=== PATIENT | male | born 1970 | race Caucasian/White ===

== ENCOUNTER 2019-03-17 05:06 | Emergency (ER) | payer BC, OTHER ==
[~2019-03-17] VITALS: Ht 175.3 cm; Wt 87.5 kg
[2019-03-17 05:31] LABS: BILIRUBIN,URINE NEGATIVE (NEGATIVE); CLARITY,URINE CLEAR; COLOR,URINE YELLOW; GLUCOSE, URINE (UA) NEGATIVE (NEGATIVE); KETONES,URINE NEGATIVE (NEGATIVE); LEUKOCYTE ESTERASE ,URINE NEGATIVE (NEGATIVE); NITRITE,URINE NEGATIVE (NEGATIVE); PH,URINE 5 (5-9); PROTEIN,URINE NEGATIVE (NEGATIVE); UROBILINOGEN,URINE NORMAL (NORMAL)
[2019-03-17 05:35] LABS: BASOPHILS % (AUTO) 0 % (0-10); EOSINOPHILS # (AUTO) 0.1 10^3/uL (0.0-0.3); EOSINOPHILS % (AUTO) 1 % (0-10); HEMATOCRIT 44 % (40-54); HEMOGLOBIN 14.8 G/DL (13.3-17.7); LYMPHOCYTES % (AUTO) 8 % (12-44); MEAN CORPUSCULAR HEMOGLOBIN 28 PG (25-34); MEAN CORPUSCULAR HGB CONC 34 G/DL (32-36); MEAN CORPUSCULAR VOLUME 84 FL (80-99); MEAN PLATELET VOLUME 11.1 FL (7.4-10.4); MONOCYTES % (AUTO) 8 % (0-12); NEUTROPHILS # (AUTO) 11.5 X 10^3 (1.8-7.8); NEUTROPHILS % (AUTO) 84 % (42-75); PLATELET COUNT 216 10^3/uL (130-400); RED CELL DISTRIBUTION WIDTH 12.7 % (10.0-14.5); WHITE BLOOD COUNT 13.7 10^3/uL (4.3-11.0)
[2019-03-17] MEDS ORDERED: LACTATED RINGERS 1,000 ML IV ONE (05:38)
--- NOTE | 2019-03-17 05:44 | ED Abdominal Pain ---
General Chief Complaint: Abdominal/GI Problems Stated Complaint: POSS KIDNEY STONE,LEFT SIDE Nursing Triage Note: AMBULATORY TO ED WITH C/O LEFT FLANK PAIN THAT STARTED LAST SUNDAY AND DESCRIBES BURNING AND PAINFUL, NOW AT TRIAGE PAIN IS DULL AND ACHY. DENIES BURING WITH URINATION. NO CURRENT NAUSEA. HX OF KIDNEY STONES IN PAST WITHOUT SURGICAL INTERVENTION. LAST NOC AT [facility] 1999 TOOK "GENERIC HYDROCODONE" AND IBUPROFEN WHICH DID NOT HELP PAIN. Sepsis Screen: No Definite Risk Source of Information: Patient Exam Limitations: No Limitations History of Present Illness Date Seen by Provider: Mar 17, 2019 Time Seen by Provider: 05:25 Initial Comments PT ARRIVES VIA POV FROM HOME STATES HE THINKS HE IS PASSING A KIDNEY STONE SYMPTOMS BEGAN ON SUNDAY AFTER NOON AROUND 1300, AFTER RIDING A RIDE AT [employer] PAIN CONTINUED ALL DAY--PAIN IN LEFT FLANK RADIATING TO LEFT MID AND LOWER ABDOMEN HAD NAUSEA AND VOMITED ON SUNDAY NIGHT, DUE TO PAIN PAIN SUBSIDED ON SUNDAY NIGHT, AND WAS A MILD DULL PAIN ALL DAY YESTER / SUNDAY PAIN INCREASED AROUND 1999 LAST NIGHT TOOK A HYDROCODONE WITHOUT RELIEF, LAST NIGHT--YET STATES PAIN IS ONLY A SLIGHT DULL ACHE ON THE INSIDE NOW--NOT SORE TO TOUCH--, OVER LEFT FLANK AND LEFT MID ABDOMEN NO PAIN ON URINATION, OR HEMATURIA WAS URINATING SMALL AMOUNTS OF DARK URINE ON SUNDAY, BUT HAS BEEN VOIDING NORMAL SINCE THEN HAD SUBJECTIVE FEVER LAST PM HAS HAD A KIDNEY STONE ONCE, SEVERAL YEARS AGO, PASSED IT ON HIS OWN NEVER SAW A UROLOGIST PCP: DR NAPOLES Allergies and Home Medications Allergies Coded Allergies: No Known Drug Allergies (Unverified , 03/17/19) Home Medications Hydrocodone/Ibuprofen 1 Each Tablet, 1 EACH PO Q4H PRN for PAIN-MODERATE Prescribed by: CATRACHITA PRATHER on 03/17/19608 Nitrofurantoin Monohyd/M-Cryst 100 Mg Capsule, 100 MG PO BID Prescribed by: CATRACHITA PRATHER on 03/17/19608 Ondansetron 4 Mg Tab.rapdis, 4 MG PO Q4H Prescribed by: CATRACHITA PRATHER on 03/17/19608 Tamsulosin HCl 0.4 Mg Cap, 0.4 MG PO DAILY Prescribed by: CATRACHITA PRATHER on 03/17/19608 Patient Home Medication List Home Medication List Reviewed: Yes Review of Systems Review of Systems Constitutional: see HPI, fever Respiratory: No Symptoms Reported Cardiovascular: No Symptoms Reported Gastrointestinal: See HPI, Abdominal Pain, Nausea, Vomiting Genitourinary: See HPI Musculoskeletal: see HPI, back pain Skin: no symptoms reported Psychiatric/Neurological: No Symptoms Reported Endocrine: No Symptoms Reported Hematologic/Lymphatic: No Symptoms Reported Past Lkbjspi-Yqagud-Oileeg Hx Patient Social History Alcohol Use: Denies Use Recreational Drug Use: No Smoking Status: Former Smoker (QUIT SMOKING ON DAILY BASIS A FEW YEARS AGO, NOW "OCCASIONALLY " SMOKES) Type Used: Cigarettes Recent Foreign Travel: No Contact w/Someone Who Travel: No Recent Infectious Disease Expo: No Recent Hopitalizations: No Seasonal Allergies Seasonal Allergies: No Past Medical History Surgeries: Yes (WISDOM TEETH) Respiratory: No Cardiac: Yes High Cholesterol, Hypertension Neurological: No Reproductive Disorders: No Genitourinary: Yes Kidney Stones Gastrointestinal: No Musculoskeletal: No Endocrine: No HEENT: No Cancer: No Psychosocial: No Blood Disorders: No Physical Exam Vital Signs Vital Signs - First Documented 03/17/19 05:21 Temp 97.9 Pulse 72 Resp 18 B/P (MAP) 166/111 (129) Capillary Refill : Less Than 3 Seconds Height/Weight/BMI Height: 5'9.00" Weight: 193lbs. oz. 87.947313bu; 24.39 BMI Method:Stated General Appearance: WD/WN, no apparent distress, other (TALKS NON-STOP AT LENGTH) Respiratory: normal breath sounds, no respiratory distress, no accessory muscle use Cardiovascular: regular rate, rhythm, no murmur Gastrointestinal: normal bowel sounds, non tender, soft, no organomegaly Back: normal inspection, no CVA tenderness Neurologic/Psychiatric: interventional neuroradiologist II-XII nml as tested, no motor/sensory deficits, alert, normal mood/affect, oriented x 3 Skin: normal color, warm/dry; No rash Progress/Results/Core Measures Results/Orders Lab Results Laboratory Tests Test 03/17/19 05:20 03/17/19 05:25 Range/Units Urine Color YELLOW Urine Clarity CLEAR Urine pH 5 5-9 Urine Specific [place] 1.020 1.016-1.022 Urine Protein NEGATIVE NEGATIVE Urine Glucose (UA) NEGATIVE NEGATIVE Urine Ketones NEGATIVE NEGATIVE Urine Nitrite NEGATIVE NEGATIVE Urine Bilirubin NEGATIVE NEGATIVE Urine Urobilinogen NORMAL NORMAL MG/DL Urine Leukocyte Esterase NEGATIVE NEGATIVE Urine RBC (Auto) NEGATIVE NEGATIVE Urine RBC NONE /HPF Urine WBC NONE /HPF Urine Squamous Epithelial Cells RARE /HPF Urine Crystals NONE /LPF Urine Bacteria TRACE /HPF Urine Casts NONE /LPF Urine Mucus NEGATIVE /LPF Urine Culture Indicated NO White Blood Count 13.7 H 4.3-11.0 10^3/uL Red Blood Count 5.24 4.35-5.85 10^6/uL Hemoglobin 14.8 13.3-17.7 G/DL Hematocrit 44 40-54 % Mean Corpuscular Volume 84 80-99 FL Mean Corpuscular Hemoglobin 28 25-34 PG Mean Corpuscular Hemoglobin Concent 34 32-36 G/DL Red Cell Distribution Width 12.7 10.0-14.5 % Platelet Count 216 130-400 10^3/uL Mean Platelet Volume 11.1 H 7.4-10.4 FL Neutrophils (%) (Auto) 84 H 42-75 % Lymphocytes (%) (Auto) 8 L 12-44 % Monocytes (%) (Auto) 8 0-12 % Eosinophils (%) (Auto) 1 0-10 % Basophils (%) (Auto) 0 0-10 % Neutrophils # (Auto) 11.5 H 1.8-7.8 X 10^3 Lymphocytes # (Auto) 1.0 1.0-4.0 X 10^3 Monocytes # (Auto) 1.0 0.0-1.0 X 10^3 Eosinophils # (Auto) 0.1 0.0-0.3 10^3/uL Basophils # (Auto) 0.0 0.0-0.1 10^3/uL Sodium Level 137 135-145 MMOL/L Potassium Level 4.1 3.6-5.0 MMOL/L Chloride Level 103 98-107 MMOL/L Carbon Dioxide Level 24 21-32 MMOL/L Anion Gap 10 5-14 MMOL/L Blood Urea Nitrogen 19 H 7-18 MG/DL Creatinine 1.99 H 0.60-1.30 MG/DL Estimat Glomerular Filtration Rate 36 BUN/Creatinine Ratio 10 Glucose Level 111 H 70-105 MG/DL Calcium Level 9.2 8.5-10.1 MG/DL Corrected Calcium 9.0 8.5-10.1 MG/DL Total Bilirubin 1.1 H 0.1-1.0 MG/DL Aspartate Amino Transf (AST/SGOT) 16 5-34 U/L Alanine Aminotransferase (ALT/SGPT) 28 0-55 U/L Alkaline Phosphatase 52 40-136 U/L Total Protein 7.2 6.4-8.2 GM/DL Albumin 4.3 3.2-4.5 GM/DL Amylase Level 32 25-125 U/L Lipase 9 8-78 U/L My Orders Orders - CATRACHITA PRATHER DO Ct Abd/Pelvis Wo(Kidney Stone) (03/17/19 05:26) Amylase (03/17/19 05:26) Cbc With Automated Diff (03/17/19 05:26) Comprehensive Metabolic Panel (03/17/19 05:26) Lipase (03/17/19 05:26) Urinalysis (03/17/19 05:26) Acute Abd Series (03/17/19 05:26) Ed Iv/Invasive Line Start (03/17/19 05:26) Ketorolac Injection (Toradol Injection) (03/17/19 05:45) Ed Iv/Invasive Line Start (03/17/19 05:38) Lactated Ringers (Lr 1000 Ml Iv Solution (03/17/19 05:38) Tamsulosin Capsule (Flomax Capsule) (03/17/19 06:15) Medications Given in ED Current Medications Medications Dose Ordered Sig/Silver Route Start Time Stop Time Status Last Admin Dose Admin Ketorolac Tromethamine 30 mg ONCE ONCE IVP 03/17/19 05:45 03/17/19 05:46 DC 03/17/19 06:00 30 MG Lactated Ringer's 1,000 ml @ 0 mls/hr Q0M ONCE IV 03/17/19 05:38 03/17/19 05:39 DC 03/17/19 06:00 999 MLS/HR Vital Signs/I&O 03/17/19 05:21 Temp 97.9 Pulse 72 Resp 18 B/P (MAP) 166/111 (129) Blood Pressure Mean: 129 Progress Progress Note : Progress Note NO SIGNIFICANT PAIN DURING ER STAY--ONLY A MILD DULL ACHE ON ARRIVAL, WHICH IS COMPLETELY RESOLVED WITH TORADOL NO OTHER SYMPTOMS DURING ER STAY Diagnostic Imaging Comments ACUTE ABDOMEN XRAYS--NO ACUTE PROCESS, CALCIFICATIONS IN PELVIS BILATERALLY, PENDING RADIOLOGIST REVIEW CT ABDOMEN/PELVIS--3 MM STONE LEFT UVJ WITH MILD LEFT HYDRONEPHROSIS, MILD LEFT PERINEPHRIC STRANDING. FATTY LIVER. PER [facility] VIA FAX AT 0602 Reviewed: Reviewed by Me Departure Impression Primary Impression: Calculus of distal left ureter Disposition: 01 HOME, SELF-CARE Condition: Stable Departure-Patient Inst. Referrals: MARIO ALBERTO NAPOLES MD (PCP/Family) Primary Care Physician ROBERT KINNEY MD Patient Instructions: How to Strain Your Urine, Kidney Stones (DC) Add. Discharge Instructions: LOTS OF FLUIDS STRAIN ALL URINE--RETURN ANY STONES TO DR. KINNEY'S OFFICE RETURN TO ER IF WORSE All discharge instructions reviewed with patient and/or family. Voiced understanding. Scripts Nitrofurantoin Monohyd/M-Cryst (Macrobid 100 mg Capsule) 100 Mg Capsule 100 MG PO BID, #20 CAP Prov: CATRACHITA PRATHER DO 03/17/19 Ondansetron (Ondansetron Odt) 4 Mg Tab.rapdis 4 MG PO Q4H for Nausea/Vomiting, #10 TAB Prov: CATRACHITA PRATHER DO 03/17/19 Hydrocodone/Ibuprofen (Hydrocodone-Ibuprofen 7.5-200) 1 Each Tablet 1 EACH PO Q4H PRN for PAIN-MODERATE for 3 Days, TAB Prov: CATRACHITA PRATHER DO 03/17/19 Tamsulosin HCl (Flomax) 0.4 Mg Cap 0.4 MG PO DAILY, #10 CAP Prov: CATRACHITA PRATHER DO 03/17/19 CATRACHITA PRATHER DO Mar 17, 2019 05:44
[2019-03-17] MEDS ORDERED: KETOROLAC 30 MG/ML VIAL IVP ONE (05:45)
[2019-03-17 05:47] LABS: BACTERIA,URINE TRACE /HPF; SQUAMOUS EPITHELIAL CELL,UR RARE /HPF
[2019-03-17 05:53] LABS: ALBUMIN 4.3 GM/DL (3.2-4.5); BILIRUBIN,TOTAL 1.1 MG/DL (0.1-1.0); CALCIUM 9.2 MG/DL (8.5-10.1); CREATININE SERUM 1.99 MG/DL (0.60-1.30); POTASSIUM 4.1 MMOL/L (3.6-5.0); TOTAL PROTEIN 7.2 GM/DL (6.4-8.2)
[2019-03-17] MEDS ORDERED: TAMS0.4C98 PO (06:09)
[2019-03-17] MEDS ORDERED: NITR-65 PO (06:09)
[2019-03-17] MEDS ORDERED: ONDA4TAB11 PO (06:09)
[2019-03-17] MEDS ORDERED: HYDR-87 PO (06:09)
[2019-03-17] MEDS ORDERED: TAMSULOSIN 0.4 MG (FLOMAX) CAP PO ONE (06:11)
--- NOTE | 2019-03-17 06:13 | Diagnostic Imaging Report ---
INDICATION: Flank and abdominal pain. COMPARISON: None. FINDINGS: Acute abdominal series demonstrates normal chest. The bowel gas pattern is normal. There is some slight constipation without obstruction or ileus. There is no free air. Osseous structures are normal. IMPRESSION: Slight constipation. Dictated by: Dictated on workstation # [id number]
[2019-03-17] MEDS ORDERED: TAMSULOSIN 0.4 MG (FLOMAX) CAP PO SCH (06:15)
--- NOTE | 2019-03-17 06:41 | Diagnostic Imaging Report ---
PROCEDURE: CT urinary tract, rule out kidney stone. TECHNIQUE: Multiple contiguous axial images were obtained through the abdomen and pelvis without the use of intravenous contrast. Auto Exposure Controls were utilized during the CT exam to meet ALARA standards for radiation dose reduction. INDICATION: Left flank pain. COMPARISON: 02/19/2014 FINDINGS: There is mild left-sided hydronephrosis secondary to an obstructive 3 mm stone just above the left UVJ. Additional single nonobstructive stone is seen in the mid aspect of the left kidney. Right kidney and ureter are normal. Lung bases are clear. The gallbladder and additional solid organs are intact. The course and caliber of the large and small bowel normal. There is no free air, free fluid or inflammation. Osseous structures are age-appropriate. IMPRESSION: Mild left-sided hydronephrosis secondary to an obstructive 3 mm stone just above the left UVJ. Agree with preliminary report. Dictated by: Dictated on workstation # [id number]
[2019-03-17 06:44] VITALS: BP 139/102
== END 2019-03-17 06:45 | disposition home or self-care (01) ==
LOC: EDUNIT# 05:06 → ER 05:10
DX: N13.2 Hydronephrosis with renal and ureteral calculous obstruction (principal); E78.00 Pure hypercholesterolemia, unspecified; I10 Essential (primary) hypertension; Z87.442 Personal history of urinary calculi; Z87.891 Personal history of nicotine dependence
CPT/HCPCS: 36415; 74022; 74176; 80053; 81000; 82150; 83690; 85025; 96361; 96374

== ENCOUNTER → 2019-03-19 | Outpatient (CLI) | payer BC ==
[~2019-03-19] MED LIST: ATEN50TA PO; ATOR10TA66 PO; HYDR-87 PO; NITR-65 PO; ONDA4TAB11 PO; PHEN-640 PO; TAMS0.4C98 PO
--- NOTE | 2019-03-19 16:06 | Diagnostic Imaging Report ---
Supine abdomen at 2:43. Indication: Left urolithiasis. The CT abdomen/pelvis exam of 03/17/2019 noted partial obstruction of the left collecting system due to a 3 mm calculus at the ureterovesicular junction. On the acute abdomen series performed in conjunction with the CT, there were 2 similar sized calcifications overlying the base of the bladder on the left. On this exam, the more cephalad of the 2 calcifications is not well-visualized and may have been the obstructive calculus. The calculus may have subsequently passed into the bladder. The other calcification is unchanged in position. This calcification was also present on the prior lumbar spine exam of 07/06/2016, consequently is most likely due to a phlebolith. The nonobstructive calculi involving the left kidney seen on CT exam are partially visualized on this exam. There is no other pathological calcification evident. There is no acute abnormality of the abdomen. Impression: 1. The obstructive calculus within the distal left ureter seen previously is not well-visualized and may have passed into the bladder. Clinical followup is recommended. 2. There is no acute abnormality of the abdomen noted. Dictated by: Dictated on workstation # [id number]
== END ==
LOC: RAD 14:33
PROVIDERS: ATTEND Urology
DX: N20.1 Calculus of ureter (principal)
CPT/HCPCS: 74018

== ENCOUNTER 2019-03-20 05:31 | Outpatient (CLI) | payer BC ==
[~2019-03-20] VITALS: Ht 175.3 cm; Wt 87.5 kg
[~2019-03-20 05:31] MED LIST changes: -ATEN50TA PO; -ATOR10TA66 PO; -PHEN-640 PO
[2019-03-20] MEDS ORDERED: ATEN50TA PO (12:15)
[2019-03-20] MEDS ORDERED: ATOR10TA66 PO (12:15)
[2019-03-21] MEDS ORDERED: PHEN-640 PO (13:53)
== END 2019-03-20 12:28 ==
LOC: PREOP 05:31
PROVIDERS: ATTEND Urology
DX: Z01.818 Encounter for other preprocedural examination (principal)

== ENCOUNTER 2019-03-21 10:14 | Day surgery (SDC) | payer BC ==
[2019-03-21] VITALS (11 sets, daily range): BP systolic 146–164; BP diastolic 88–102
[~2019-03-21] VITALS: Ht 175.3 cm; Wt 87.5 kg
--- NOTE | 2019-03-21 09:14 | Progress Note-Pre Operative ---
Pre-Operative Progress Note H&P Reviewed The H&P was reviewed, patient examined and no changes noted. Date Seen by Provider: Mar 21, 2019 Time Seen by Provider: 11:45 Date H&P Reviewed: Mar 21, 2019 Time H&P Reviewed: 11:45 Pre-Operative Diagnosis: LT DISTAL URETERAL STONE ROBERT KINNEY MD Mar 21, 2019 09:14
[~2019-03-21 10:14] MED LIST changes: +ATEN50TA PO; +ATOR10TA66 PO
--- OUTSIDE RECORDS SUMMARY | 2019-03-21 10:17 | XMS REPORT | Continuity of Care Document ---
Author Organization Unknown Address Unknown Allergies Active Description Code Type Severity Reaction Onset Reported/Identified Relationship to Patient Clinical Status Yes No Known Drug Allergies [id number] Drug Allergy Unknown N/A 03/17/2019 Medications There is no data. 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 Ot 789.03 ABDOMINAL PAIN, RIGHT LOWER QUADRANT 08/14/2016 COLTHARP DOLIZY Ot M54.5 LOW BACK PAIN 08/14/2016 COLERIKAARP DOLIZY Ot S33.5XXD SPRAIN OF LIGAMENTS OF LUMBAR SPINE, SUB 08/14/2016 COLTHARP DO, LIZY Owen Ot X39.8XXD OTHER EXPOSURE TO FORCES [employer], SUBS 08/14/2016 COLTHARP DO, LIZY Owen Ot Y92.69 OT INDUSTRIAL AND CONSTRUCTION AREA 08/14/2016 COLTHARP DOLIZY Ot Y99.0 CIVILIAN ACTIVITY DONE FOR INCOME OR PAY 08/21/2016 COLTHARP DO, LIZY Owen Ot M54.5 LOW BACK PAIN 08/21/2016 COLTHARP DO, LIZY Owen Ot S33.5XXD SPRAIN OF LIGAMENTS OF LUMBAR SPINE, SUB 08/21/2016 COLTHARP DOLIZY Ot X39.8XXD OTHER EXPOSURE TO FORCES [employer] NAT[employer], SUBS 08/21/2016 LIZY FELICIANO DO Ot Y92.69 OT INDUSTRIAL AND CONSTRUCTION AREA 08/21/2016 LIZY FELICIANO DO Ot Y99.0 CIVILIAN ACTIVITY DONE FOR INCOME OR PAY 08/24/2016 LIZY FELICIANO DO Ot M54.5 LOW BACK PAIN 08/24/2016 LIZY FELICIANO DO Ot S33.5XXD SPRAIN OF LIGAMENTS OF LUMBAR SPINE, SUB 08/24/2016 LIZY FELICIANO DO Ot X39.8XXD OTHER EXPOSURE TO FORCES [employer] NAT[employer], SUBS 08/24/2016 LIZY FELICIANO DO Ot Y92.69 OT INDUSTRIAL AND CONSTRUCTION AREA 08/24/2016 LIZY FELICIANO DO Ot Y99.0 CIVILIAN ACTIVITY DONE FOR INCOME OR PAY Procedures There is no data. Results Test Result Range T3 Uptake - 06/29/17 12:00 T3 Uptake 26 % 24-39 Complete urinalysis with reflex to culture - 03/17/19 05:20 Urine color determination YELLOW NRG Urine clarity determination CLEAR NRG Urine pH measurement by test strip 5 5-9 Specific gravity of urine by test strip 1.020 1.016-1.022 Urine protein assay by test strip, semi-quantitative NEGATIVE NEGATIVE Urine glucose detection by automated test strip NEGATIVE NEGATIVE Erythrocytes detection in urine sediment by light microscopy NEGATIVE NEGATIVE Urine ketones detection by automated test strip NEGATIVE NEGATIVE Urine nitrite detection by test strip NEGATIVE NEGATIVE Urine total bilirubin detection by test strip NEGATIVE NEGATIVE Urine urobilinogen measurement by automated test strip (mass/volume) NORMAL NORMAL Urine leukocyte esterase detection by dipstick NEGATIVE NEGATIVE Automated urine sediment erythrocyte count by microscopy (number/high power field) NONE NRG Automated urine sediment leukocyte count by microscopy (number/high power field) NONE NRG Bacteria detection in urine sediment by light microscopy TRACE NRG Squamous epithelial cells detection in urine sediment by light microscopy RARE NRG Crystals detection in urine sediment by light microscopy NONE NRG Casts detection in urine sediment by light microscopy NONE NRG Mucus detection in urine sediment by light microscopy NEGATIVE NRG Complete urinalysis with reflex to culture NO NRG Complete blood count (CBC) with automated white blood cell (WBC) differential - 03/17/19 05:25 Blood leukocytes automated count (number/volume) 13.7 10*3/uL 4.3-11.0 Blood erythrocytes automated count (number/volume) 5.24 10*6/uL 4.35-5.85 Venous blood hemoglobin measurement (mass/volume) 14.8 g/dL 13.3-17.7 Blood hematocrit (volume fraction) 44 % 40-54 Automated erythrocyte mean corpuscular volume 84 [foz_us] 80-99 Automated erythrocyte mean corpuscular hemoglobin (mass per erythrocyte) 28 pg 25-34 Automated erythrocyte mean corpuscular hemoglobin concentration measurement (mass/volume) 34 g/dL 32-36 Automated erythrocyte distribution width ratio 12.7 % 10.0- 14.5 Automated blood platelet count (count/volume) 216 10*3/uL 130-400 Automated blood platelet mean volume measurement 11.1 [foz_us] 7.4-10.4 Automated blood neutrophils/100 leukocytes 84 % 42-75 Automated blood lymphocytes/100 leukocytes 8 % 12-44 Blood monocytes/100 leukocytes 8 % 0-12 Automated blood eosinophils/100 leukocytes 1 % 0-10 Automated blood basophils/100 leukocytes 0 % 0-10 Blood neutrophils automated count (number/volume) 11.5 10*3 1.8-7.8 Blood lymphocytes automated count (number/volume) 1.0 10*3 1.0-4.0 Blood monocytes automated count (number/volume) 1.0 10*3 0.0- 1.0 Automated eosinophil count 0.1 10*3/uL 0.0-0.3 Automated blood basophil count (count/volume) 0.0 10*3/uL 0.0-0.1 Comprehensive metabolic panel - 03/17/19 05:25 Serum or plasma sodium measurement (moles/volume) 137 mmol/L 135-145 Serum or plasma potassium measurement (moles/volume) 4.1 mmol/L 3.6-5.0 Serum or plasma chloride measurement (moles/volume) 103 mmol/L 98-107 Carbon dioxide 24 mmol/L 21-32 Serum or plasma anion gap determination (moles/volume) 10 mmol/L 5-14 Serum or plasma urea nitrogen measurement (mass/volume) 19 mg/dL 7-18 Serum or plasma creatinine measurement (mass/volume) 1.99 mg/dL 0.60-1.30 Serum or plasma urea nitrogen/creatinine mass ratio 10 NRG Serum or plasma creatinine measurement with calculation of estimated glomerular filtration rate 36 NRG Serum or plasma glucose measurement (mass/volume) 111 mg/dL 70-105 Serum or plasma calcium measurement (mass/volume) 9.2 mg/dL 8.5-10.1 Serum or plasma total bilirubin measurement (mass/volume) 1.1 mg/dL 0.1-1.0 Serum or plasma alkaline phosphatase measurement (enzymatic activity/volume) 52 U/L 40-136 Serum or plasma aspartate aminotransferase measurement (enzymatic activity/volume) 16 U/L 5-34 Serum or plasma alanine aminotransferase measurement (enzymatic activity/volume) 28 U/L 0-55 Serum or plasma protein measurement (mass/volume) 7.2 g/dL 6.4-8.2 Serum or plasma albumin measurement (mass/volume) 4.3 g/dL 3.2-4.5 CALCIUM CORRECTED 9.0 mg/dL 8.5-10.1 Serum or plasma amylase measurement (enzymatic activity/volume) - 03/17/19 05:25 Serum or plasma amylase measurement (enzymatic activity/volume) 32 U/L 25-125 Lipase - 03/17/19 05:25 Lipase 9 U/L 8-78 Encounters ACCT No. Visit Date/Time Discharge Status Pt. Type Provider Facility Loc./Unit Complaint [id number] 03/17/2019 05:10:00 03/17/2019 06:45:00 DIS Emergency CATRACHITA PRATHER DO [facility] ER POSS KIDNEY STONE,LEFT SIDE [id number] 08/24/2016 14:30:00 08/24/2016 15:55:00 DIS Outpatient LIZY FELICIANO DO [facility] REHAB LUMBAR PAIN/SPRAIN [id number] 07/21/2016 15:28:00 07/21/2016 23:59:59 CLS Outpatient LIZY FELICIANO DO [facility] RAD ACUTE LUMBAR SPRAIN/PAIN [id number] 07/06/2016 09:12:00 07/06/2016 23:59:59 CLS Outpatient LIZY FELICIANO DO [facility] OCC BACK PAIN AFTER LIFTING 100# [id number] 06/22/2014 18:28:00 06/22/2014 19:57:00 DIS Emergency BRITNEY BYNUM APRN [facility] ER RIGHT SIDE ABD PAIN [id number] 03/19/2019 14:33:00 ACT Outpatient NIRMAL [place], ROBERT [facility] RAD KUB X-RAY [id number] 07/02/2017 13:06:00 Document Registration
--- NOTE | 2019-03-21 10:45 | Diagnostic Imaging Report ---
CLINICAL INDICATION: Patient with left ureteral stone. EXAM: KUB x-ray. COMPARISON: X-ray of the abdomen dated 03/19/2012. CT scan of the abdomen and pelvis without contrast dated 03/17/2019. FINDINGS: Stable appearance to calcifications in the pelvis. There are multiple phleboliths in the pelvis seen bilaterally. This limits evaluation for distal ureteral stone. There is a 2 mm calcification overlying the expected region of the mid to upper left kidney which may represent a left renal stone. There is no intestinal obstruction. There is no intra-abdominal free air. There are small degenerative spurs involving the spine. IMPRESSION: 1: There are stable multiple calcifications in the pelvis which may represent phleboliths. These calcifications limit evaluation for stones in the distal ureter. If there is continued concern for distal ureteral stone, then CT scan would better evaluate. 2: Nonobstructive left nephrolithiasis. Dictated by: Dictated on workstation # [id number]
[2019-03-21] MEDS ORDERED: fentaNYL INJECTION 100 MCG/2 ML AMP IV ONE (11:00)
[2019-03-21] MEDS ORDERED: cefTRIAXone FOR IV USE 1,000 MG in WATER (STERILE) FOR INJECTION 10 ML IV ONE (11:00)
[2019-03-21] MEDS: LACTATED RINGERS 1,000 ML IV PRN ×2 (11:05→12:35)
[2019-03-21] MEDS ORDERED: CATHETER FLUSH 10 ML SYR IV PRN (11:15)
[2019-03-21] MEDS ORDERED: MIDAZOLAM 2 MG/2 ML (VERSED) VIAL ONE (11:39)
[2019-03-21] MEDS ORDERED: proPOfol 200 MG/20 ML (DIPRIVAN) VIAL IV ONE (11:39)
[2019-03-21] MEDS ORDERED: LIDOCAINE PF 2% 5 ML (XYLOCAINE) VIAL ONE (11:39)
[2019-03-21] MEDS ORDERED: fentaNYL INJECTION 100 MCG/2 ML AMP ONE (11:39)
[2019-03-21] MEDS ORDERED: DEXAMETHASONE 10 MG/ML (DECADRON) 1 ML VIAL ONE (11:47)
[2019-03-21] MEDS ORDERED: ONDANSETRON 4 MG/2 ML (SDV) Z0FRAN ONE (11:47)
--- NOTE | 2019-03-21 11:47 | Progress Note-Post Operative ---
Post-Operative Progess Note Surgeon (s)/Inspector Of Weights And Measures (s) Surgeon ROBERT KINNEY MD Inspector Of Weights And Measures: NONE Pre-Operative Diagnosis LT DISTAL URETERAL STONE Post-Operative Diagnosis SAME Procedure & Operative Findings Date of Procedure 03/21/19 Procedure Performed/Findings LT URETEROSCOPY WITH STONE LITHOTRIPSY AND LT RETROGRADE UROGRAM Anesthesia Type GENERAL Estimated Blood Loss Estimated blood loss (mL): NONE Specimens/Packing Specimens Removed STONE FRAGMENT Packing: NONE ROBERT KINNEY MD Mar 21, 2019 11:47
[2019-03-21] MEDS ORDERED: ROCURONIUM 10 MG/ML 5 ML SYRINGE IV ONE (11:58)
[2019-03-21] MEDS ORDERED: NEOSTIGMINE 1 MG/ML 5 ML SYRINGE ONE (12:21)
[2019-03-21] MEDS ORDERED: GLYCOPYRROLATE 0.2 MG/ML (ROBINUL) 2 ML VIAL ONE (12:21)
[2019-03-21] MEDS ORDERED: FUROSEMIDE 40 MG/4 ML INJ (LASIX) ONE (12:23)
[2019-03-21] MEDS ORDERED: KETOROLAC 30 MG/ML VIAL ONE (12:23)
[2019-03-21] MEDS ORDERED: SEVOFLURANE (ULTANE) 15 ML INHAL SOLN ONE (12:29)
--- NOTE | 2019-03-21 12:46 | Discharge Inst-Urology ---
Discharge Inst-Urology Discharge Medications New, Converted, or Re-newed RX: RX on Chart Patient Instructions/Follow Up Plan Please make appointment to been seen in office in 3 weeks. Stone risk profile to do as OP, lab to provide kit and instructions Increase oral fluids for 48 hours and then as needed. Diet and Activity as tolerated. If questions or concerns contact your physician Or seek help at emergency department. ROBERT KINNEY MD Mar 21, 2019 12:46
[2019-03-21] MEDS ORDERED: morphine INJ 10 MG/ML 1ML (SYR OR VIAL) IVP ONE (13:00)
[2019-03-21] MEDS ORDERED: ONDANSETRON 4 MG/2 ML (SDV) Z0FRAN IVP PRN (13:00)
[2019-03-21] MEDS ORDERED: HYDROmorphone 2 MG/ML VIAL (DILAUDID) IV ONE (13:00)
[2019-03-21] MEDS ORDERED: PHEN-640 PO (13:53)
--- NOTE | 2019-03-21 14:38 | Anesthesia-General Post-Op ---
General Patient Condition Mental Status/LOC: Same as Preop Cardiovascular: Satisfactory Nausea/Vomiting: Absent Respiratory: Satisfactory Pain: Controlled Complications: Absent Post Op Complications Complications None Follow Up Care/Instructions Patient Instructions None needed. Anesthesia/Patient Condition Patient Condition Patient is doing well, no complaints, stable vital signs, no apparent adverse anesthesia problems. MANDY CARR DO Mar 21, 2019 14:38
--- NOTE | 2019-03-21 19:17 | OPERATIVE REPORT ---
DATE OF SERVICE: 03/21/2019 PREOPERATIVE DIAGNOSIS: Left distal ureteral stone. POSTOPERATIVE DIAGNOSIS: Left distal ureteral stone. OPERATION PERFORMED: Left ureteroscopy with stone lithotripsy recovery of stone fragment and left retrograde ureterogram. SURGEON: Akira Kinney MD ANESTHESIA: General. COMPLICATIONS: None. DESCRIPTION OF PROCEDURE: Under satisfactory general anesthesia with the patient in lithotomy position, genitalia were prepped and draped in the usual sterile fashion. A 23-Lao cystoscope was introduced in the bladder. The anterior urethra was normal. The prostate was small, but there was an elevated median bar that was bypassed easily. The bladder inspection was normal except that the left ureteral orifice intramural portion was swollen and edematous with no efflux. I went ahead using the foroblique lens dilated the left ureteral orifice intramural portion to accommodate a 6.9 Lao semirigid ureteroscope, visualized the stone that was disimpacted during dilatation and fragmented. The fragments fell into the bladder that was later retrieved with the stone grasping forceps and given to the patient to his wish. I went ahead with the ureteroscope and went up to the middle of the proximal ureter up and down to confirm no more stones or fragments. I did a retrograde ureterogram, which showed no filling defect and complete emptying of the system on withdrawing the scope. There was no reason to put a stent. I removed the ureteroscope, reinserted the cystoscope and retrieved that fragment as above with the grasping forceps, emptied the bladder and removed the cystoscope. The patient tolerated the procedure and anesthesia well and was sent to recovery room in stable condition. PLAN: We will complete the workup for stone prevention with a stone risk profile and we will see him back in 3 weeks and manage the future for prevention of stone formation. This was preoperatively explained to the patient and to his as well postoperatively. Job ID: [id number] DocumentID: [id number] Dictated Date: 03/21/2019 12:49:06 Advertising Inserter Date: 03/21/2019 19:17:43 Dictated By: AKIRA KINNEY MD
== END 2019-03-21 14:35 | disposition home or self-care (01) ==
LOC: SDC 10:14
PROVIDERS: ATTEND Urology
DX: N20.1 Calculus of ureter (principal); I10 Essential (primary) hypertension; E78.00 Pure hypercholesterolemia, unspecified; Z79.899 Other long term (current) drug therapy
CPT/HCPCS: 74018; 87081

== ENCOUNTER 2019-03-25 16:38 | Outpatient (RCR) | payer BC ==
[~2019-03-25 16:38] MED LIST changes: +PHEN-640 PO
== END 2019-06-23 | disposition home or self-care (01) ==
LOC: LAB 16:38
PROVIDERS: ATTEND Urology
DX: N20.9 Urinary calculus, unspecified (principal)
CPT/HCPCS: 36415; 82140; 82340; 82507; 82570; 83735; 83945; 83986; 84105; 84133; 84300; 84392; 84560

== ENCOUNTER → 2021-05-20 | Outpatient (CLI) | payer BC ==
[~2021-05-20] MED LIST changes: -TAMS0.4C98 PO; +TMSL.4C PO
--- NOTE | 2021-05-20 17:01 | Diagnostic Imaging Report ---
INDICATION: Low back pain. TIME OF EXAM: 12:40 p.m. AP, lateral and both oblique views of the lumbar spine were obtained. Curvature and alignment of the lumbar spine is normal. Vertebral body heights and disc spaces are well-maintained. No fracture or subluxation is seen. No definite spondylolysis or spondylolisthesis is identified. IMPRESSION: No acute bony abnormality is detected. Dictated by: Dictated on workstation # [id number]
== END ==
LOC: RAD 12:12
PROVIDERS: ATTEND Physician Assistant
DX: M54.5 Low back pain (principal)
CPT/HCPCS: 72110

== ENCOUNTER 2023-01-19 12:31 | Outpatient (CLI) | payer BC ==
[~2023-01-19 12:31] MED LIST changes: +HYDR-4085 PO; -HYDR-87 PO
== END 2023-01-19 12:55 ==
LOC: SLEEP 12:31
PROVIDERS: ATTEND Family Medicine
DX: G47.33 Obstructive sleep apnea (adult) (pediatric) (principal)
CPT/HCPCS: G0399

== ENCOUNTER 2023-07-18 05:56 | Outpatient (CLI) | payer BC ==
[~2023-07-18] VITALS: Ht 175.3 cm; Wt 88.1 kg
[2023-07-18] MEDS ORDERED: HYDR12.56 PO (10:54)
== END 2023-07-18 11:00 | disposition home or self-care (01) ==
LOC: PREOP 05:56
PROVIDERS: ATTEND Surgery
DX: Z01.818 Encounter for other preprocedural examination (principal)

== ENCOUNTER 2023-07-27 09:06 | Day surgery (SDC) | payer BC ==
[~2023-07-27] VITALS: Ht 175.2 cm; Wt 88.1 kg
[~2023-07-27 09:06] MED LIST changes: +HYDR12.56 PO
[2023-07-27] MEDS ORDERED: LACTATED RINGERS 1,000 ML 1,000 ML IV STA (09:10)
[2023-07-27] MEDS ORDERED: LIDOCAINE JELLY 2% 6 ML SYRINGE MM PRN (09:15)
[2023-07-27 09:37] VITALS: BP 144/93
[2023-07-27] MEDS ORDERED: MIDAZOLAM INJ 2 MG/2 ML VIAL ONE (10:40)
[2023-07-27] MEDS ORDERED: LIDOCAINE JELLY 2% 6 ML SYRINGE ONE ×2 (10:42→10:43)
[2023-07-27] MEDS ORDERED: ONDANSETRON 4 MG ORAL DISSOLVE TABLET PO PRN (10:45)
[2023-07-27] MEDS ORDERED: ONDANSETRON INJECTION 4 MG/2 ML (SDV) IVP PRN (10:45)
--- NOTE | 2023-07-27 10:45 | Progress Note-Pre Operative ---
Pre-Operative Progress Note Date of Available H&P: Jul 27, 2023 Date H&P Reviewed: Jul 27, 2023 Time H&P Reviewed: 10:30 History & Physical: No changes noted Pre-Operative Diagnosis: screening o SHANICE VEGAS MD Jul 27, 2023 10:45
--- NOTE | 2023-07-27 10:46 | Discharge Inst-Surgical ---
D/C Lap Instructions-ASCENCION Follow Up Activity as tolerated High Fiber Diet 25g or more per day Avoid Alcohol, Caffeine, Spicy [place] and Acid foods. Drink 64 fluid oz or more of fluids per day. Symptoms to Report: Fever over 101 degree F, Nausea/Vomiting If any problems/questions: Contact your physician or go to Emergency Room SHANICE VEGAS MD Jul 27, 2023 10:46
[2023-07-27 11:15] VITALS: BP 102/61
[2023-07-27 11:20] VITALS: BP 108/65
[2023-07-27 11:25] VITALS: BP 132/77
[2023-07-27 11:46] VITALS: BP 132/77
--- NOTE | 2023-07-27 12:31 | Progress Note-Post Operative ---
Post-Operative Progess Note Surgeon (s)/Chain Hooker (s) Surgeon SHANICE VEGAS MD Chain Hooker: none Pre-Operative Diagnosis screening colo Post-Operative Diagnosis mild chronic stage 2 ext and int hemorrhoids. Procedure & Operative Findings Date of Procedure 07/27/23 Procedure Performed/Findings colonoscopy Anesthesia Type mac Estimated Blood Loss Estimated blood loss (mL): minimal Specimens/Packing Specimens Removed none SHANICE VEGAS MD Jul 27, 2023 12:31
--- NOTE | 2023-07-27 19:22 | OPERATIVE REPORT ---
DATE OF SERVICE: 07/27/2023 ATTENDING PRIMARY CARE PHYSICIAN: Dr. Reid Truong. PREOPERATIVE DIAGNOSIS: Screening colonoscopy. POSTOPERATIVE DIAGNOSES: Mild chronic stage II external and internal hemorrhoids. PROCEDURE: Colonoscopy. SURGEON: Shanice Vegas MD ANESTHESIA: Monitored anesthesia care. ESTIMATED BLOOD LOSS: Minimal. FINDINGS: Mild chronic stage II external and internal hemorrhoids. DISPOSITION: The patient tolerated the procedure well. INDICATIONS: The patient is a 52-year-old male in need of a screening colonoscopy. He has not had a colonoscopy up to this point in his life. He states that he is otherwise doing well, does not report any major issues with diarrhea, nor constipation as well as no red blood per rectum, nor any dark tarry stools. He also does not report any family history of colon cancer. DESCRIPTION OF PROCEDURE: The patient was brought to the endoscopy suite and laid in the left lateral decubitus position. After adequate IV pain and sedative medications and monitored anesthesia care, a digital rectal examination was performed. Mild chronic stage II, external and internal hemorrhoids were identified, not actively edematous nor inflamed and no bleeding. Normal sphincter tone was felt and there were no palpable masses. Prostate gland was palpable and appeared normal. The endoscope was then intubated into the anus, rectum gently insufflated. The endoscope was then advanced through the valves of Soares of the rectum with no polyps or any neoplasms identified. The endoscope was then advanced through the sigmoid colon where no diverticulosis identified. The endoscope was then advanced to the remainder of the descending, transverse and ascending colon to the cecum, which were normal. No polyps or any neoplasms identified throughout the colon or rectum. The endoscope was slowly withdrawn while taking a second look and suctioning of residual air with no additional findings. The patient tolerated the procedure well. We will recommend continued medical management with a high-fiber diet with a fiber supplement, which should equal or exceed 30 grams daily as well as significant amounts of water to promote soft consistency stools on a daily basis. He does not need another colonoscopy for another 10 years. Job ID: [id number] DocumentID: [id number] Dictated Date: 07/27/2023 11:22:29 Director Of Professional Services Date: 07/27/2023 19:20:00 Dictated By: SHANICE VEGAS MD
== END 2023-07-27 11:47 | disposition home or self-care (01) ==
LOC: ENDO 09:06
PROVIDERS: ATTEND Surgery
DX: Z12.11 Encounter for screening for malignant neoplasm of colon (principal); K64.1 Second degree hemorrhoids; K64.4 Residual hemorrhoidal skin tags; G47.33 Obstructive sleep apnea (adult) (pediatric); Z87.891 Personal history of nicotine dependence